=== PATIENT | female | born 1950 | race Caucasian/White ===

== ENCOUNTER 2020-10-03 19:15 | Emergency (ER) | payer MEDICARE, SELFPAY ==
--- NOTE | 2020-10-03 19:20 | ED.URI ---
HPI - URI/Sore Throat General Chief Complaint: Upper Respiratory Infection Stated Complaint: Sore Throat Time Seen by Provider: 10/03/20 19:20 Source: patient and RN notes reviewed History of Present Illness HPI Narrative: Patient is a 70-year-old female who presents the urgent care with complaints of a red throat on the left side. Patient states that she also saw some pus on the left tonsil . States that she called her doctor for a sore throat approximately a week and a half ago and was on amoxicillin for 10 days. Patient states that the throat is not sore anymore she just notices some redness. Patient has been gargling with salt water but was nervous she may have an infection . Patient denies of any fever, nausea, vomiting, headache. States that she does have a mild intermittent cough due to her chronic asthma but has not had any issues with her asthma recently. No other acute complaints. No acute distress noted. Patient aware of the plan of care. Some parts of this dictation were generated by voice recognition software and may contain typographical and/or grammatical inaccuracies. Related Data Home Medications Medication Instructions Recorded Confirmed albuterol sulfate [Ventolin HFA] INHALATION 10/03/20 alprazolam 10/03/20 amlodipine 10/03/20 atorvastatin 10/03/20 nabumetone mg 10/03/20 naproxen 10/03/20 tizanidine mg 10/03/20 triamcinolone acetonide applic TOPICAL 10/03/20 Allergies Allergy/AdvReac Type Severity Reaction Status Date / Time No Known Allergies Allergy Verified 10/03/20 19:23 Review of Systems Review of Systems: Narrative: CONSTITUTIONAL: Denies fever, chills, or sweats. EYES: Denies visual changes, redness, or discharge. ENT: Reports of a red throat to the left side and pus pockets on the left CARDIOVASCULAR: Denies chest pain, palpitations, or edema. RESPIRATORY: Reports of a chronic intermittent cough due to asthma GASTROINTESTINAL: Denies abdominal pain, nausea, vomiting, or diarrhea. GENITOURINARY: Denies dysuria or hematuria. SKIN: Denies rash or itching. MUSCULOSKELETAL: Denies back pain, joint pain, or myalgia. NEUROLOGIC: Denies headache, numbness, or weakness. All other systems reviewed are negative, except as documented in HPI. PMFSH Comments At the time of my signature, I reviewed and agree with the nursing past medical, surgical, social, and family history. There is no relevant family history pertinent to the patient complaint. Exam Narrative: Exam Narrative: GENERAL: This is a well-nourished, well-developed patient, in no apparent distress. HEAD: normocephalic, atraumatic. EYES: PERRL. Sclera clear/white. Vision is grossly intact. EARS: External ears normal, auditory canals clear and without drainage, TMs normal without perforation. Hearing grossly intact. NOSE: External nose normal with no obvious nasal discharge, nares without redness, no rhinorrhea. THROAT: Mucous membranes moist, very mild erythema noted posterior oropharynx without exudate or ulceration. No tonsillar edema noted. NECK: Neck supple, non-tender without lymphadenopathy CARDIOVASCULAR: Regular rate and rhythm without murmurs, gallops, or rubs. RESPIRATORY: Mild expiratory wheeze to upper lung griffin SKIN: warm, intact with no suspicious lesions or rash, good texture and turgor. NEURO: awake, alert, and oriented to person, place and time. There were no obvious focal neurologic abnormalities. EXTREMITIES: No clubbing, cyanosis, or edema. Course Vital Signs Vital signs: Vital Signs Temperature 98.4 F 10/03/20 19:25 Pulse Rate 101 H 10/03/20 19:25 Respiratory Rate 16 10/03/20 19:25 Blood Pressure 180/75 H 10/03/20 19:25 Pulse Oximetry 94 10/03/20 19:25 Temperature 98.4 F 10/03/20 19:25 Pulse Rate 101 H 10/03/20 19:25 Respiratory Rate 16 10/03/20 19:25 Blood Pressure 180/75 H 10/03/20 19:25 Pulse Oximetry 94 10/03/20 19:25 Reviewed?patient is informed that the
[2020-10-03 19:25] VITALS: BP 180/75; PULSE 101; RESP 16; TEMP 36.9; O2SAT 94
[2020-10-03 19:45] VITALS: BP 160/80
== END 2020-10-03 19:45 | disposition home or self-care (01) ==
PROVIDERS: Emergency Provider Nurse Practitioner Family; PCP Family Medicine
DX: J02.0 Streptococcal pharyngitis (principal); I10 Essential (primary) hypertension; J44.9 Chronic obstructive pulmonary disease, unspecified; M19.90 Unspecified osteoarthritis, unspecified site; H26.9 Unspecified cataract
CPT/HCPCS: 87880; 99213; G0463

== ENCOUNTER 2020-10-23 10:02 | Emergency (ER) | payer MEDICARE, SELFPAY ==
[2020-10-23 10:08] VITALS: BP 141/65; PULSE 98; RESP 20; TEMP 36.7; O2SAT 95
--- NOTE | 2020-10-23 10:30 | ED.LOWEXIN ---
HPI - Extremity Injury (Lower) General Chief Complaint: Extremity Injury, Lower Stated Complaint: left ankle pain Time Seen by Provider: 10/23/20 10:32 Source: patient and RN notes reviewed Mode of arrival: ambulatory Limitations: no limitations History of Present Illness HPI Narrative: 70-year-old female presents with concern for left ankle swelling, redness, warmth without injury. Reports she noticed the symptoms last night that worsened this morning. She reports worsening pain with weightbearing, aching at rest. She denies any open skin, abrasions, lacerations, bug bites. Denies itching. Reports a history of arthritis in the foot, however denies any previous history of ankle problems. She denies body aches, chills, fever, nausea. MD complaint: other (Left ankle swelling) Related Data Home Medications Medication Instructions Recorded Confirmed albuterol sulfate [Ventolin HFA] 2 puff INHALATION Q4H PRN 10/03/20 10/23/20 alprazolam 0.5 mg PO HS 10/03/20 10/23/20 amlodipine 10 mg PO DAILY 10/03/20 10/23/20 nabumetone 750 mg PO BID 10/03/20 10/23/20 naproxen 375 mg PO BID 10/03/20 10/23/20 tizanidine 2 mg PO Q6H PRN 10/03/20 10/23/20 Allergies Allergy/AdvReac Type Severity Reaction Status Date / Time Flu shot Allergy Unknown Uncoded 10/23/20 10:17 pneumonia shot AdvReac Unknown Uncoded 10/23/20 10:17 Review of Systems Review of Systems: Narrative: CONSTITUTIONAL: Denies malaise, chills, sweats, or fever. CARDIOVASCULAR: Denies chest pain, palpitations, or edema. RESPIRATORY: Denies cough or dyspnea. GASTROINTESTINAL: Deniesnausea, vomiting SKIN: Denies rash or itching, bruising, lacerations, abrasions to the ankle. MUSCULOSKELETAL: Denies myalgia. Reports left ankle redness, warmth, swelling without injury NEUROLOGIC: Denies numbness, weakness, or headache. All systems reviewed & are unremarkable except as noted in HPI and below PMFSH Social History Social History Gender identity (if verbalized by the patient): Female Comments At time of signature, agree with nursing past medical, surgical, social and family history. There is no relevant family history pertinent to the presenting complaint Exam Narrative: Exam Narrative: GENERAL: Well-appearing, well-nourished, and in no acute distress. HEAD: Normocephalic, atraumatic. EYES: PERRLA, conjunctivae clear NECK: Supple. CHEST: Speaks in full sentences. No respiratory distress. HEART: Regular rate and rhythm. Normal and equal peripheral pulses. EXTREMITIES: Left ankle, foot have normal strength and sensation, normal range of motion. No ecchymosis. 5/5 strength with ankle and digit flexion and extension. Normal sensation with sensitivity to light touch and pain. No point tenderness. No open wounds, no skin tenting, no devitalized tissue or atrophy, no trophic changes, no obvious deformity, alignment normal, nearby joints and structures intact. Distal pulses palpable and equal bilaterally, skin warm, dry, pink. Capillary refill less than 3 seconds. SKIN: Warm, dry, no rash. Left ankle circumferential erythema, edema, warmth, tenderness NEURO: Alert and oriented x3. PSYCH: Normal mood and affect Course Course Emergency Course: Patient is aware of diagnosis, understands and agrees to treatment plan. Anticipatory guidance given. Patient agrees to follow-up as directed and is aware of reasons to seek care at the emergency department. Portions of this record may have been created with voice recognition software Vital Signs Vital signs: Vital Signs Temperature 98.0 F 10/23/20 10:08 Pulse Rate 98 10/23/20 10:08 Respiratory Rate 20 10/23/20 10:08 Blood Pressure 141/65 H 10/23/20 10:08 Pulse Oximetry 95 10/23/20 10:08 Temperature 98.0 F 10/23/20 10:08 Pulse Rate 98 10/23/20 10:08 Respiratory Rate 20 10/23/20 10:08 Blood Pressure 141/65 H 10/23/20 10:08 Pulse Oximetry 95 10/23/20 10:08 Reviewed. MDM - Extremity Injury (Lower)
== END 2020-10-23 10:48 | disposition home or self-care (01) ==
PROVIDERS: Emergency Provider Nurse Practitioner; PCP Family Medicine
DX: L03.116 Cellulitis of left lower limb (principal); I10 Essential (primary) hypertension; J45.909 Unspecified asthma, uncomplicated; J44.9 Chronic obstructive pulmonary disease, unspecified; M19.90 Unspecified osteoarthritis, unspecified site; F41.9 Anxiety disorder, unspecified; H26.9 Unspecified cataract
CPT/HCPCS: 99213; G0463

== ENCOUNTER 2020-12-19 17:01 | Emergency (ER) | payer MEDICARE, SELFPAY ==
[2020-12-19 17:10] VITALS: BP 137/94; PULSE 94; RESP 18; TEMP 37.2; O2SAT 95
--- NOTE | 2020-12-19 17:34 | ED.URI ---
HPI - URI/Sore Throat General Chief Complaint: Upper Respiratory Infection Stated Complaint: sore throat Time Seen by Provider: 12/19/20 17:30 Source: patient Mode of arrival: ambulatory Limitations: no limitations History of Present Illness HPI Narrative: Eleanor Mayes is a 70-year-old female with HTN and anxiety who comes to [facility] with a sore throat for a few days who came to the side for strep testing. She will not consent to Covid test and has not been vaccinated Related Data Home Medications Medication Instructions Recorded Confirmed albuterol sulfate [Ventolin HFA] 2 puff INHALATION Q4H PRN 10/03/20 12/19/20 alprazolam 0.5 mg PO HS 10/03/20 12/19/20 amlodipine 10 mg PO DAILY 10/03/20 12/19/20 Allergies Allergy/AdvReac Type Severity Reaction Status Date / Time Flu shot Allergy Rash Uncoded 12/19/20 17:27 pneumonia shot AdvReac Rash Uncoded 12/19/20 17:27 Review of Systems Review of Systems: CONSTITUTIONAL: Denies fever, chills, sweats. EYES: Denies visual changes, redness, discharge. ENT: Denies rhinorrhea, congestion, has sore throat, otalgia. CARDIOVASCULAR: Denies chest pain, palpitations, edema. RESPIRATORY: Denies dyspnea, wheezing, cough GASTROINTESTINAL: Denies abdominal pain, nausea, vomiting, diarrhea. GENITOURINARY: Denies dysuria, hematuria, abnormal discharge SKIN: Denies rash or itching. NEUROLOGIC: Denies numbness, or focal weakness. PSYCHIATRIC: Denies anxiety or depression. FORMERLY [facility], 1928–1983 Past Medical History Medical History Anxiety HTN (hypertension) Family History Family History Other Hypertension Social History Social History (Updated 12/19/20 @ 17:47 by Colleen Jasso CNP) Smoking packs per day: 0.4 Smoking cigarettes per day: 8.0 Smoking status: Current every day smoker Tobacco type: cigarettes Alcohol intake: current Gender identity (if verbalized by the patient): Female Comments At time of signature, I agree with nursing past medical, surgical, social and family history. There is no relevant family history pertinent to the presenting complaint. Exam Narrative: GENERAL: This is a well-nourished, well-developed patient, in mild distress. HEAD: normocephalic, atraumatic. EYES: Sclera clear/white. Vision is grossly intact. EARS: External ears normal, auditory canals erythema and without drainage, TMs bulging. Hearing grossly intact. NOSE: External nose normal without nasal discharge, nares without redness, no rhinorrhea. THROAT: Mucous membranes moist, posterior pharynx mild erythema NECK: Neck supple, non-tender CARDIOVASCULAR: Regular rate and rhythm without murmurs, gallops, or rubs. RESPIRATORY: Clear to auscultation. Breath sounds equal bilaterally. No wheezes, rales, or rhonchi. GASTROINTESTINAL: Abdomen soft, non-tender, SKIN: warm, intact with no suspicious lesions or rash, good texture and turgor. NEURO: awake, alert, and oriented to person, place and time. There were no obvious focal neurologic abnormalities. Steady gait EXTREMITIES: Normal range of motion. BACK: Nontender without deformity Course Course Emergency Course: Patient came to [facility] with sore throat for a number of days no fever states it is somewhat difficult to swallow denies any pain in ears, she feels like she has a strep throat; states ears are itchy Strep test negative To complaining of sore throat and started on cepacol, zyrtec, and Medrol Dosepak-patient is aware of the results of the test Vital Signs Vital signs: Vital Signs Temperature 99 F 12/19/20 17:10 Pulse Rate 94 12/19/20 17:10 Respiratory Rate 18 12/19/20 17:10 Blood Pressure 137/94 H 12/19/20 17:10 Pulse Oximetry 95 12/19/20 17:10 Temperature 99 F 12/19/20 17:10 Pulse Rate 94 12/19/20 17:10 Respiratory Rate 18 12/19/20 17:10 Blood Pressure 137/94 H 12/19/20 17
== END 2020-12-19 18:08 | disposition home or self-care (01) ==
PROVIDERS: Emergency Provider Nurse Practitioner; PCP Family Medicine
DX: J02.9 Acute pharyngitis, unspecified (principal); F41.9 Anxiety disorder, unspecified; I10 Essential (primary) hypertension; F17.210 Nicotine dependence, cigarettes, uncomplicated
CPT/HCPCS: 87081; 87880; 99213; G0463

== ENCOUNTER 2021-09-18 13:07 | Emergency (ER) | payer MEDICARE, SELFPAY ==
[2021-09-18 13:19] VITALS: BP 163/57; PULSE 107; RESP 16; TEMP 37; O2SAT 93
--- NOTE | 2021-09-18 13:35 | ED.SKABFB ---
HPI - Skin/Abscess/Foreign Bdy General Chief complaint: Ear Stated complaint: Right Ear Injury Time Seen by Provider: 09/18/21 13:36 Source: patient and RN notes reviewed Mode of arrival: ambulatory Limitations: no limitations History of Present Illness HPI narrative: 71-year-old female presents the concern for injury to her ear. Reports just prior to arrival she was at the gas station, getting back into her car, she reports as she was running around in her car she hit the back of her ear on her car door. She reports noticing blood. She reports the area directly behind her ear is a little bit sore. She denies headache, vomiting, loss of consciousness, dizziness. MD complaint: laceration Related Data Home Medications Medication Instructions Recorded Confirmed albuterol sulfate [Ventolin HFA] 2 puff INHALATION Q4H PRN 10/03/20 09/18/21 alprazolam 0.5 mg PO HS 10/03/20 09/18/21 amlodipine 10 mg PO DAILY 10/03/20 09/18/21 alendronate 40 mg PO WEEKLY 09/18/21 09/18/21 nabumetone 750 mg PO PRN 09/18/21 09/18/21 tizanidine 2 mg PO PRN 09/18/21 09/18/21 Allergies Allergy/AdvReac Type Severity Reaction Status Date / Time Flu shot Allergy Rash Uncoded 09/18/21 13:31 pneumonia shot AdvReac Rash Uncoded 09/18/21 13:31 Review of Systems Review of Systems: CONSTITUTIONAL: Denies malaise, chills, sweats, or fever. SKIN: Reports laceration behind the right ear MUSCULOSKELETAL: Denies muscle skeletal pain NEUROLOGIC: Denies numbness, weakness, headache, amnesia All systems reviewed & are unremarkable except as noted in HPI and below PMFSH Past Medical History Medical History Anxiety HTN (hypertension) Family History Family History Other Hypertension Social History Social History (Updated 12/19/20 @ 17:47 by Colleen Jasso CNP) Smoking packs per day: 0.4 Smoking cigarettes per day: 8.0 Smoking status: Current every day smoker Tobacco type: cigarettes Alcohol intake: current Gender identity (if verbalized by the patient): Female Comments At time of signature, agree with nursing past medical, surgical, social and family history. There is no relevant family history pertinent to the presenting complaint Exam Narrative: GENERAL: Well-appearing, well-nourished, and in no acute distress. HEAD: Normocephalic, atraumatic. EYES: PERRLA, sclera clear, and EOMI. No nystagmus. ENT: Mucous membranes moist. NECK: Supple. CHEST: No respiratory distress. Speaks in full sentences. HEART: Regular rate and rhythm. No murmur heard. Normal peripheral pulses. SKIN: Warm, dry. 2 cm laceration noted on the back of the right ear with no current bleeding, well approximated, not through and through NEURO: Alert and oriented x3. No focal deficits. PSYCH: Normal mood and affect Course Course Emergency Course: CCHR score: Signs of open or depressed skull fracture: No Ambrosio sign/raccoon eyes: No 2 or more episodes of vomiting: No Age 65 years +: Yes Amnesia for events occurring 30 minutes prior to trauma: No Dangerous mechanism of injury: No Exam findings show no acute concerns; patient is alert and oriented with normal neurological exam. Discussed CCH R score and patient's age taking her slightly higher risk for head injury. Offered transfer to emergency department for CT scan, patient chooses to be discharged, she understands reasons to seek care in the emergency department if symptoms change. Patient is appropriate for outpatient treatment and follow-up. Patient is aware of diagnosis, understands and agrees to treatment plan. Anticipatory guidance given. Patient agrees to follow-up as directed and is aware of reasons to seek care at the emergency department. Portions of this record may have been created with voice recognition software Level of Care: Express Care Visit Vital Signs Vital signs: Vital Signs Te
== END 2021-09-18 13:53 | disposition home or self-care (01) ==
PROVIDERS: Emergency Provider Nurse Practitioner; PCP Family Medicine
DX: S01.311A Laceration without foreign body of right ear, initial encounter (principal); W22.8XXA Striking against or struck by other objects, initial encounter; F41.9 Anxiety disorder, unspecified; I10 Essential (primary) hypertension
CPT/HCPCS: 12011; 99212; G0463

== ENCOUNTER 2022-07-24 11:19 | Emergency (ER) | payer OTHER, SELFPAY ==
--- NOTE | ~2022-07-24 | XR_ITS ---
Left Knee Technique: AP, lateral, and oblique views were obtained. Clinical History: Pain Findings: No fracture or dislocation is seen. Osseous alignment is anatomic. Joint spaces are preserv ed without degenerative or erosive change. Chondrocalcinosis of the menisci noted. No joint effusion is seen. Impression: Chondrocalcinosis of the menisci. Reviewed, dictated and finalized at location . Impression: Chondrocalcinosis of the menisci.
[2022-07-24 11:31] VITALS: BP 153/66; PULSE 96; RESP 16; TEMP 36.4; O2SAT 93
--- NOTE | 2022-07-24 12:06 | ED.EXTPRO ---
HPI - Extremity Problem General Chief complaint: Extremity Problem,Nontraumatic Stated complaint: Left Knee Pain/Swelling Time Seen by Provider: 07/24/22 12:00 Source: patient, RN notes reviewed and old records reviewed Mode of arrival: ambulatory Limitations: no limitations History of Present Illness HPI Narrative: 72-year-old female who presents to [facility] with complaints of left knee pain for the past 4 days. Patient reports that she has restless legs and she stretched her left knee and leg out in bed because of cramping and has had pain to medial aspect of her left knee since. Patient reports that her pain is aggravated by bending and ambulation, has some limping gait noted. Patient reports that she has been taking her arthritis medication for her discomfort and also some Tylenol. Patient reports some head congestion this morning also, denies any fever or acute cough. MD Complaint: other (Knee pain left) Onset (ago): day(s) (4) Severity scale (1-10): 7 Quality: aching Related Data Home Medications Medication Instructions Recorded Confirmed alprazolam 0.5 mg tablet 0.5 mg PO DAILY 07/24/22 07/24/22 amlodipine 10 mg tablet 10 mg PO DAILY 07/24/22 07/24/22 atorvastatin 10 mg tablet 10 mg PO DAILY 07/24/22 07/24/22 fluticasone furoate 200 See Rx Instructions .Route .COMPLEX 07/24/22 07/24/22 mcg-vilanterol 25 mcg/dose inhalation powder (Breo Ellipta) naproxen 375 mg tablet 375 mg PO BID PRN Pain 07/24/22 07/24/22 nystatin 100,000 unit/gram topical See Rx Instructions .Route .COMPLEX 07/24/22 07/24/22 cream tizanidine 2 mg capsule 2 mg PO TID PRN pain 07/24/22 07/24/22 Allergies Allergy/AdvReac Type Severity Reaction Status Date / Time Flu shot Allergy Rash Uncoded 07/24/22 11:56 pneumonia shot AdvReac Rash Uncoded 07/24/22 11:56 Review of Systems Review of Systems: CONSTITUTIONAL: Denies fever, chills, or sweats. EYES: Denies visual changes, redness, or discharge. ENT: reports rhinorrhea, congestion,no sore throat, or otalgia. CARDIOVASCULAR: Denies chest pain, palpitations, or edema. RESPIRATORY: Denies cough or dyspnea. GASTROINTESTINAL: Denies abdominal pain, nausea, vomiting, or diarrhea. GENITOURINARY: Denies dysuria or hematuria. SKIN: Denies rash or itching. MUSCULOSKELETAL: Denies back pain, positive for left knee joint pain, or myalgia. NEUROLOGIC: Denies headache, numbness, or weakness. PSYCHIATRIC: Reports anxiety or depression. All systems reviewed & are unremarkable except as noted in HPI and below PMFSH Past Medical History Medical History Anxiety Arthritis COPD (chronic obstructive pulmonary disease) HTN (hypertension) Restless leg syndrome Serum cholesterol elevated Surgical History Surgical History H/O section Family History Family History Other Hypertension Social History Social History Smoking packs per day: 0.4 Smoking cigarettes per day: 8.0 Smoking status: Current every day smoker Tobacco type: cigarettes Alcohol intake: current Substance use type: does not use Occupation/Education: retired Gender identity (if verbalized by the patient): Female Comments At time of signature, agree with nursing past medical, surgical, social and family history. There is no relevant family history pertinent to the presenting complaint Exam Narrative: GENERAL: Well-appearing, well-nourished, and in no acute distress. HEAD: Normocephalic, atraumatic. EYES: PERRLA and EOMI. ENT: Nares clear, no rhinorrhea or epistaxis. Mucous membranes moist.TM's normal with good light reflex, throat pink with no swelling NECK: Supple. no lymphadenopathy CHEST: Clear to auscultation. No respiratory distress.SAO2 93% on room air HEART: Regular rate and rhythm.
--- NOTE | 2022-07-24 12:37 | ED.EXTPRO ---
HPI - Extremity Problem General Chief complaint: Extremity Problem,Nontraumatic Stated complaint: Left Knee Pain/Swelling Time Seen by Provider: 07/24/22 12:00 Source: patient, RN notes reviewed and old records reviewed Mode of arrival: ambulatory Limitations: no limitations Related Data Home Medications Medication Instructions Recorded Confirmed alprazolam 0.5 mg tablet mg 07/24/22 amlodipine 10 mg tablet mg 07/24/22 atorvastatin 10 mg tablet mg 07/24/22 fluticasone furoate 200 inhalation 07/24/22 07/24/22 mcg-vilanterol 25 mcg/dose inhalation powder (Breo Ellipta) naproxen 375 mg tablet mg 07/24/22 nystatin 100,000 unit/gram topical topical 07/24/22 cream tizanidine 2 mg capsule 2 mg PO TID PRN pain 07/24/22 07/24/22 Allergies Allergy/AdvReac Type Severity Reaction Status Date / Time Flu shot Allergy Rash Uncoded 07/24/22 11:56 pneumonia shot AdvReac Rash Uncoded 07/24/22 11:56 PMFSH Past Medical History Medical History Anxiety HTN (hypertension) Family History Family History Other Hypertension Social History Social History (Updated 12/19/20 @ 17:47 by Colleen Jasso, RENETTA) Smoking packs per day: 0.4 Smoking cigarettes per day: 8.0 Smoking status: Current every day smoker Tobacco type: cigarettes Alcohol intake: current Gender identity (if verbalized by the patient): Female Course Vital Signs Vital signs: Vital Signs Temperature 36.4 C 07/24/22 11:31 Pulse Rate 96 07/24/22 11:31 Respiratory Rate 16 07/24/22 11:31 Blood Pressure 153/66 H 07/24/22 11:31 Pulse Oximetry 93 07/24/22 11:31 Oxygen Delivery Room Air 07/24/22 11:31 Temperature 36.4 C 07/24/22 11:31 Pulse Rate 96 07/24/22 11:31 Respiratory Rate 16 07/24/22 11:31 Blood Pressure 153/66 H 07/24/22 11:31 Pulse Oximetry 93 07/24/22 11:31 Oxygen Delivery Room Air 07/24/22 11:31 Discharge Plan Discharge Clinical Impression: Knee pain, left Patient Disposition: Home, Self-Care Condition: Stable Instructions: Antibiotic Form, Knee Pain (ED) Additional Instructions: Elastic wrap or orthopedic splint such as neoprene as directed for comfort for the next 5-7 days Tylenol for lesser pain Ibuprofen regularly for the next 2-3 days for the inflammation Voltaren ointment as prescribed Follow-up with orthopedic surgeon if continued problems Dr. Schwab honing machine operator today [phone] Follow-up with PCP if further problems or concerns Ice to the area 20-30 minutes 4-6 times a day Elevate above heart If your symptoms persist, change or worsen significantly before you can contact your personal physician then please, without delay, go to the emergency department for further evaluation. Follow-up with PCP in 7-10 days or sooner if needed Follow up with PCP soon in regards to your blood pressure which is elevated above threshold for referral. Blood pressure above 120/80 may indicate pre-hypertension. Blood pressure 153/66 Prescriptions: No Action naproxen 375 mg tablet atorvastatin 10 mg tablet alprazolam 0.5 mg tablet amlodipine 10 mg tablet nystatin 100,000 unit/gram cream TOPICAL albuterol sulfate [Ventolin HFA] 90 mcg/actuation HFA aerosol inhaler INHALATION fluticasone furoate-vilanterol [Breo Ellipta] 200-25 mcg/dose blister with device INHALATION tizanidine 2 mg Capsule 2 mg PO TID PRN (Reason: pain) nabumetone 750 mg Tablet 750 mg PO BID Follow-up/Referrals: Harms,Samuel Polanco M.D. [Primary Care Provider] -
== END 2022-07-24 12:45 | disposition home or self-care (01) ==
PROVIDERS: Emergency Provider Registered Nurse; PCP Family Medicine
DX: M25.562 Pain in left knee (principal); J44.9 Chronic obstructive pulmonary disease, unspecified; I10 Essential (primary) hypertension; F17.210 Nicotine dependence, cigarettes, uncomplicated; Z79.1 Long term (current) use of non-steroidal anti-inflammatories (NSAID)
CPT/HCPCS: 73564; 99213; G0463

== ENCOUNTER 2023-10-18 17:36 | Emergency (ER) | payer OTHER, SELFPAY ==
[2023-10-18 17:40] VITALS: BP 144/66; PULSE 91; RESP 20; TEMP 36.7; O2SAT 95
--- NOTE | 2023-10-18 18:08 | ED.SKABFB ---
HPI - Skin/Abscess/Foreign Bdy General Chief complaint: Skin/Abscess/Foreign Body Stated complaint: Rash arm and chest Time Seen by Provider: 10/18/23 18:00 Source: patient, RN notes reviewed and old records reviewed Mode of arrival: ambulatory Limitations: no limitations History of Present Illness HPI narrative: 73 year old female who presents to [facility] care with complaints of red raised rash area to the upper left arm for 4-5 days, reports that she has had this similar rash in the past and usually resolves with steroid. Patient also states rash between her breast with is red patchy minimal raised to flat which is itchy, states first occurrence of this rash. Patient reports that she has been applying hydrocortisone cream, antibacterial ointment and cool compresses to rashes without resolution. MD complaint: rash Onset (ago): day(s) (-5) Severity: moderate Quality: pruritic Treatments prior to arrival: other (hydrocortisone, antibiotic ointment, cool compresses) Related Data Home Medications Medication Instructions Recorded Confirmed alprazolam 0.5 mg tablet 0.5 mg PO DAILY 07/24/22 10/18/23 amlodipine 10 mg tablet 10 mg PO DAILY 07/24/22 10/18/23 atorvastatin 10 mg tablet 10 mg PO DAILY 07/24/22 10/18/23 fluticasone furoate 200 See Rx Instructions .Route .COMPLEX 07/24/22 10/18/23 mcg-vilanterol 25 mcg/dose inhalation powder (Breo Ellipta) naproxen 375 mg tablet 375 mg PO BID PRN Pain 07/24/22 10/18/23 tizanidine 2 mg capsule 2 mg PO TID PRN pain 07/24/22 10/18/23 ezetimibe 10 mg tablet 10 mg PO DAILY 10/18/23 10/18/23 Allergies Allergy/AdvReac Type Severity Reaction Status Date / Time Flu shot Allergy Rash Uncoded 07/24/22 11:56 pneumonia shot AdvReac Rash Uncoded 07/24/22 11:56 Review of Systems Review of Systems: CONSTITUTIONAL: Denies fever, chills, or sweats. CARDIOVASCULAR: Denies chest pain, palpitations, or edema. RESPIRATORY: Denies cough or dyspnea. SKIN: Reports moderate red raised rash areas to left arm and patient has flat red itching area between her breast MUSCULOSKELETAL: Denies joint pain or myalgia. NEUROLOGIC: Denies headache, numbness, or weakness. All systems reviewed & are unremarkable except as noted in HPI and below PMFSH Past Medical History Medical History (Updated 10/20/23 @ 17:34 by Cordelia Hand NP) Anxiety Arthritis COPD (chronic obstructive pulmonary disease) HTN (hypertension) Restless leg syndrome Sciatica Serum cholesterol elevated Surgical History Surgical History H/O section Family History Family History Other Hypertension Social History Social History Smoking packs per day: 0.4 Smoking cigarettes per day: 8.0 Smoking status: Current every day smoker Tobacco type: cigarettes Alcohol intake: current Substance use type: does not use Occupation/Education: retired Gender identity (if verbalized by the patient): Female Comments At time of signature, agree with nursing past medical, surgical, social and family history. There is no relevant family history pertinent to the presenting complaint Exam Narrative: GENERAL: Well-appearing, well-nourished, and in no acute distress. HEAD: Normocephalic, atraumatic. EYES: PERRLA, conjunctivae clear, and EOMI. ENT: Mucous membranes moist. Oropharynx without edema, erythema or lesions. NECK: Supple. No lymphadenopathy CHEST: Clear to auscultation. No respiratory distress. HEART: Regular rate and rhythm. SKIN: Warm, dry.? Patches of erythema and edema moderate raised rash on left upper arm no itch or pain, minimal raised patchy area between breast which is itchy no drainage 4cm X X4cm area . NEURO:? Alert and oriented x3. PSYCH: Normal mood and affect Course Course Emergency Course: Ryan
[2023-10-18] MEDS: methylPREDNISolone ACETATE 80 MG/ML VIAL IM (18:25)
== END 2023-10-18 18:48 | disposition home or self-care (01) ==
PROVIDERS: Emergency Provider Registered Nurse; PCP Family Medicine
DX: L25.9 Unspecified contact dermatitis, unspecified cause (principal); B37.2 Candidiasis of skin and nail; F17.210 Nicotine dependence, cigarettes, uncomplicated; J44.9 Chronic obstructive pulmonary disease, unspecified; M19.90 Unspecified osteoarthritis, unspecified site; I10 Essential (primary) hypertension; G25.81 Restless legs syndrome; F41.9 Anxiety disorder, unspecified
CPT/HCPCS: 96372; 99213; G0463; J1010

== ENCOUNTER 2023-11-22 10:37 | Emergency (ER) | payer OTHER, SELFPAY ==
[2023-11-22 10:52] VITALS: BP 139/62; PULSE 102; RESP 16; TEMP 36.8; O2SAT 96
--- NOTE | 2023-11-22 11:49 | ED.GENADULT ---
HPI - General Adult General Chief complaint: Upper Respiratory Infection Stated complaint: Congestion/Cough Source: patient Mode of arrival: ambulatory Limitations: no limitations History of Present Illness HPI narrative: Pt presents for evaluation of sick symptoms for the past two days. Symptoms include sinus congestion, runny nose, occasional cough. No fever, chills, nausea, vomiting, sore throat. No recent sick contacts to her knowledge. She has asthma but her breathing pattern is unchanged. She is not taking any medication to assist with her symptoms. Related Data Home Medications Medication Instructions Recorded Confirmed alprazolam 0.5 mg tablet 0.5 mg PO DAILY 07/24/22 10/18/23 amlodipine 10 mg tablet 10 mg PO DAILY 07/24/22 10/18/23 fluticasone furoate 200 See Rx Instructions .Route .COMPLEX 07/24/22 10/18/23 mcg-vilanterol 25 mcg/dose inhalation powder (Breo Ellipta) naproxen 375 mg tablet 375 mg PO BID PRN Pain 07/24/22 10/18/23 tizanidine 2 mg capsule 2 mg PO TID PRN pain 07/24/22 10/18/23 albuterol sulfate 90 mcg/actuation inhalation 11/22/23 aerosol inhaler Allergies Allergy/AdvReac Type Severity Reaction Status Date / Time Flu shot Allergy Rash Uncoded 11/22/23 11:03 pneumonia shot AdvReac Rash Uncoded 11/22/23 11:03 Review of Systems Review of Systems: CONSTITUTIONAL: Denies fever, chills, or sweats. EYES: Denies visual changes, redness, or discharge. ENT: Reports sinus congestion and nasal drainage CARDIOVASCULAR: Denies chest pain, palpitations, or edema. RESPIRATORY: Reports cough. Denies shortness of breath. GASTROINTESTINAL: Denies abdominal pain, nausea, vomiting, or diarrhea. GENITOURINARY: Denies dysuria or hematuria. SKIN: Denies rash or itching. MUSCULOSKELETAL: Denies back pain, joint pain, or myalgia. NEUROLOGIC: Denies headache, numbness, dizziness, or weakness. PSYCHIATRIC: Denies anxiety or depression. [facility] Past Medical History Medical History Anxiety Arthritis COPD (chronic obstructive pulmonary disease) HTN (hypertension) Restless leg syndrome Sciatica Serum cholesterol elevated Surgical History Surgical History H/O section Family History Family History Other Hypertension Social History Social History Smoking packs per day: 0.4 Smoking cigarettes per day: 8.0 Smoking status: Former smoker Tobacco type: cigarettes Alcohol intake: current Substance use type: does not use Occupation/Education: retired Gender identity (if verbalized by the patient): Female Exam Narrative: GENERAL: Well-appearing, well-nourished, and in no acute distress. HEAD: Normocephalic, atraumatic. EYES: PERRLA and EOMI. ENT: Nares clear, no rhinorrhea or epistaxis. Mucous membranes moist. Oropharynx without tonsillar hypertrophy exudate or other lesions. Bilateral TMs p[place] nonbulging NECK: Supple. No adenopathy or masses. No carotid bruits or JVD CHEST: Clear to auscultation. No respiratory distress. No wheezes rales or rhonchi HEART: Regular rate and rhythm. No murmur heard. Normal peripheral pulses. ABDOMEN: Soft, nontender, nondistended, normal active bowel sounds. EXTREMITIES: Normal range of motion. No edema. SKIN: Warm, dry, no rash. NEURO: No focal deficits. Alert and oriented x3. PSYCH: Normal mood and affect. Course Course Emergency Course: This is a 73-year-old female who presented for evaluation of sick symptoms. She declined any testing today. Exam seems consistent with viral URI. Will discharge with Tessalon and flonase. Follow-up with primary provider. Go to the ER for worsening symptoms. Patient in agreement plan of care. Level of Care: Express Care Visit Vital Sign
== END 2023-11-22 12:02 | disposition home or self-care (01) ==
PROVIDERS: Emergency Provider Nurse Practitioner; PCP Family Medicine
DX: J06.9 Acute upper respiratory infection, unspecified (principal); F17.210 Nicotine dependence, cigarettes, uncomplicated; M19.90 Unspecified osteoarthritis, unspecified site; J44.9 Chronic obstructive pulmonary disease, unspecified; I10 Essential (primary) hypertension; G25.81 Restless legs syndrome; E78.00 Pure hypercholesterolemia, unspecified; F41.9 Anxiety disorder, unspecified
CPT/HCPCS: 99213; G0463

== ENCOUNTER 2024-01-09 11:18 | Emergency (ER) | payer OTHER, SELFPAY ==
[2024-01-09 11:27] VITALS: BP 121/46; PULSE 91; RESP 16; TEMP 36.7; O2SAT 95
--- NOTE | 2024-01-09 11:51 | ED.DENTAL ---
HPI - Dental/Oral General Chief complaint: Dental/Oral Stated complaint: left side jaw pain Time Seen by Provider: 01/09/24 11:51 Source: patient, RN notes reviewed and old records reviewed Mode of arrival: ambulatory Limitations: no limitations History of Present Illness HPI Narrative: 73-year-old female to Express Care with complaint of left jaw discomfort radiating to left ear for 3 days, worse with chewing. Patient denies any dental fractures, gingival swelling or drainage. patient denies fever, oral swelling, difficulty swallowing, cough, shortness of breath, injury to jaw. Patient states she has taken naproxen and muscle relaxer at home without relief. Patient reports is affecting her ability to sleep. Patient resting comfortably in exam room in no acute distress. Respirations even and nonlabored. Related Data Home Medications Medication Instructions Recorded Confirmed alprazolam 0.5 mg tablet 0.5 mg PO DAILY 07/24/22 10/18/23 amlodipine 10 mg tablet 10 mg PO DAILY 07/24/22 10/18/23 fluticasone furoate 200 See Rx Instructions .Route .COMPLEX 07/24/22 10/18/23 mcg-vilanterol 25 mcg/dose inhalation powder (Breo Ellipta) naproxen 375 mg tablet 375 mg PO BID PRN Pain 07/24/22 10/18/23 tizanidine 2 mg capsule 2 mg PO TID PRN pain 07/24/22 10/18/23 albuterol sulfate 90 mcg/actuation inhalation 11/22/23 aerosol inhaler Allergies Allergy/AdvReac Type Severity Reaction Status Date / Time Flu shot Allergy Rash Uncoded 11/22/23 11:03 pneumonia shot AdvReac Rash Uncoded 11/22/23 11:03 Review of Systems Review of Systems: All systems reviewed & are unremarkable except as noted in HPI and below Constitutional: Constitutional: Reports no additional constitutional complaints Eyes: Eyes: Reports no additional eye complaints ENT: Reports as per HPI, Reports otalgia ( left) and Reports other ( Left jaw pain) Cardiovascular: Cardiovascular: Reports no additional cardiovascular complaints, Denies chest pain and Denies dyspnea Respiratory: Respiratory: Reports no additional respiratory complaints, Denies cough and Denies dyspnea Musculoskeletal: Musculoskeletal: Reports no additional musculoskeletal complaints Neurologic: Reports system reviewed and no additional complaints, except as documented Psychiatric: Psychiatric: Reports no additional psychiatric complaints PMFSH Past Medical History Medical History Anxiety Arthritis COPD (chronic obstructive pulmonary disease) HTN (hypertension) Restless leg syndrome Sciatica Serum cholesterol elevated Surgical History Surgical History H/O section Family History Family History Other Hypertension Social History Social History Smoking packs per day: 0.4 Smoking cigarettes per day: 8.0 Smoking status: Former smoker Tobacco type: cigarettes Alcohol intake: current Substance use type: does not use Occupation/Education: retired Gender identity (if verbalized by the patient): Female Comments At the time of my signature, I reviewed and agree with the nursing past medical, surgical, social, and family history. There is no relevant family history pertinent to the patient complaint. Exam Const: General: cooperative, comfortable, no acute distress, alert and well nourished Nutritional Appearance: well nourished Orientation/consciousness: patient oriented x3 Limitations: no limitations HENMT: Head: normal to inspection Ears: external ears normal and TM abnormal bulging on the left and with fluid behind the TM on the left Face/Nose/Sinus: Normal external nose present, Normal nares present, normal facial exam, No erythema and No edema Face and sinus: normal facial exam, no erythema and no edema
== END 2024-01-09 12:14 | disposition home or self-care (01) ==
PROVIDERS: Emergency Provider Nurse Practitioner Family; PCP Family Medicine
DX: H66.92 Otitis media, unspecified, left ear (principal); R68.84 Jaw pain; Z87.891 Personal history of nicotine dependence; J44.9 Chronic obstructive pulmonary disease, unspecified; I10 Essential (primary) hypertension; G25.81 Restless legs syndrome; F41.9 Anxiety disorder, unspecified; M19.90 Unspecified osteoarthritis, unspecified site
CPT/HCPCS: 99213; G0463

== ENCOUNTER 2024-11-16 17:36 | Emergency (ER) | payer MEDICARE, SELFPAY ==
--- OUTSIDE RECORDS SUMMARY | 2024-11-16 17:38 | XMS_ITS | Clinical Summary ---
Author Organization [facility] Address [address] [place] [address] Phone Care Team Providers Care Pega Developer Name Role Phone Samuel Mccarty MD Primary Care Provider [phone] Allergies No known active allergies Medications lisinopril (PRINIVIL, ZESTRIL) 40 MG Tablet Take 20 mg by mouth 2 times daily. Active ALPRAZolam (XANAX) 0.5 MG Tablet Take 0.5 mg by mouth nightly as needed. Active NAPROXEN PO Take by mouth. Act kathy nabumetone (RELAFEN) 750 MG Tablet Take 750 mg by mouth daily. Active Albuterol Sulfate (VENTOLIN HFA IN) take by inhalation. Active triamcinolone (KENALOG) 0.1 % Cream Apply 2 times daily. Application Site: Back Active methylPREDNISol one (MEDROL) 4 MG Tablet Therapy PackIndications :Rash Use as per instructions on package. 21 Tab 7 Active Active Problems No known active problems Social History Tobacco Use Types Packs/Day Years Used Date Smoking Tobacco: Every Day Cigarettes Smokeless Tobacco: Never Tobacco Cessation:Ready to Q uit: No; Counseling Given: Yes Comments No Sex and Gender Information Value Date Recorded Sex Assigned at Not on file Legal Sex Female 12:30 AM CDT Gender Identity Not on file Sexual Orientation Not on file Last Filed Vital Signs Vital Sign Reading Time Taken Comments Blood Pressure 122/72 04/23/2017 12:56 PM FILLETER Pulse 96 04/23/2017 12:56 PM FILLETER Temperature 37.1 C (98.7 F) 04/23/2017 12:56 PM FILLETER Respiratory Rate 16 04/23/2017 12:56 PM FILLETER Oxygen Saturation 96% 04/23/2017 12:56 PM FILLETER Inhaled Oxygen Concentration - - Weight 77.1 kg (170 lb) 04/23/2017 12:56 PM FILLETER Height 165.1 cm (5' 5) 04/23/2017 12:56 PM FILLETER Body Mass Index 28.29 04/23/2017 12:56 PM FILLETER Plan of Treatment Health Maintenance Due Date Last Done Comments DEXA Bone Density 1950 Hepatitis C Virus (HCV) Screening 1950 TdaP Immunization 1950 Colonoscopy 1996 Colorectal Cancer Screening 1996 Cologuard 2001 Immunochemical Fecal Occult Blood 2001 Mammogram 2001 Pneumococcal Immunization (5 0+ years) (1 of 1 - PCV) 2001 Zoster Immunization (1 of 2) 2001 Influenza Immunization (#1) 2024 SARS-COV-2 Immunization ( - 2023- season) 2024 Respiratory Syncytial Virus (RSV) Immunization (Adult) (1 - 1-dose 75+ series) 2026 Hepatitis B Immunization Aged Out No longer eligible based on patient's age to complete this topic Meningococcal Immunization (ACWY) Aged Out No longer eligible based on patient's age to complete this topic Rotavirus Immunization Aged Out No lo nger eligible based on patient's age to complete this topic Insurance MEDICARE Member Subscriber Plan / Payer (Ef fective 2016-Present) Name:Eleanor Mayes Member ID:[id number] Relation to Subscriber:Self Name:Eleanor Mayes Subscriber ID:[id number] Payer ID:[id number] Group ID:Not on file Type:Not on file Address: [facility] [address] [facility] [place] [facility], [facility] [place] [address] [facility] [employer] [facility] [employer] emergency specialist Care Teams Pega Developer Relationship Specialty Start Date End Date Samuel [place] [address] PCP - General Internal Medicine 04/23/17
--- OUTSIDE RECORDS SUMMARY | 2024-11-16 17:38 | XMS_ITS | Encounter Summary ---
Author Organization [facility] Address [address] [place] [address] Care Team Providers Care Railroad Car Loader Name Role Phone Samuel Mccarty MD Primary Care Provider [phone] Reason for Visit * Reason Onset Date Comments Scheduling Appointments 12/05/2020 Confirmi ng bone density scan Encounter Details Date Type Department Care Team (Late st Contact Info) Description 12/05/2020 Telephone [facility] [address] [place] [id number] [address] Scheduling Appointments (Confirming bone density scan) Social History Tobacco Use Types Packs/Day Years Used Date Smoking Tobacco: Heavy Smoker Cigarettes Smokeless Tobacco: Never Comments:Smoking History Pac ks/day: 3 Packs Alcohol Use Standard Drinks/Week Comments No 0 (1 standard drink = 0.6 oz pur e alcohol) PHQ-2 Answer Date Recorded PHQ-2 Total Score (If total score is 3 or more points, staff should administer the PHQ-9) 0 10/10/2020 Comments Unknown Sex and Gender Information Value Date Recorded Sex Assigned at Not on file Legal Sex Female 9:37 AM HOT MAN Gender Identity Not on file Sexual Orientation Not on file documented as of this encounter Plan of Treatment Not on file documented as of this encounter Visit Diagnoses Not on filedocumented in this encounter Additional Health Concerns Infection Onset Date Last Indicated Resolved Time COVID: Suspected 07/05/2022 07/05/2022 07/05/2022 11:44 AM HOT MAN COVID: Suspected 04/17/2023 04/17/2023 04/17/2023 11:46 AM HOT MAN documented as of this encounter Care Teams Railroad Car Loader Relationship Specialty Start Date End Date Samuel Mccarty MD [address] [place] [address] PCP - General 08/01/16 documented as of this encounter
--- OUTSIDE RECORDS SUMMARY | 2024-11-16 17:38 | XMS_ITS | Referral Summary ---
Author Organization [facility] Address [address] [place] [address] Care Team Providers Care Specialty Cook Name Role Phone Samuel Mccarty MD Primary Care Provider [phone] Allergies Active Allergy Reactions Criticality Noted Date Comments Influenza Virus Vaccines Rash Medium 04/07/2022 Other Rash,Unknown Medium 10/23/2020 Pneumococcal Vaccine Swelling Medium 05/09/2019 Medications tiZANidine (ZANAFLEX) 2 mg tablet TAKE 1 TABLET BY MOUTH EVERY 6 HOURS NEEDED FOR MUSCLE SPASM 30 tablet 05/23/19 22 Active nabumetone (RELAFEN) 750 mg tablet Take 1 tablet (750 mg total) by mouth 2 (two) times a day 180 tablet 3 04/07/20 22 Active naproxen (NAPROSYN) 375 mg tablet TAKE 1 TABLET BY MOUTH TWICE DAILY WITH MEALS 60 tablet 02/19/20 23 Active Breo Ellipta 100-25 mcg/dose diskus inhaler Inhale 1 puff daily Rinse mouth with water after use. Do not swallow. 60 each 5 07/07/19 25 Active nystatin cream APPLY CREAM TOPICALLY TWICE DAILY 30 g 07/14/19 25 Active amLODIPine (NORVASC) 10 mg tabletIndicati ons:Hypertensi on, essential Take 1 tablet by mouth once daily 90 tablet 08/30/19 25 Active triamcinolone (KENALOG) 0.5 % cream Apply topically 2 (two) times a day 30 g 11 09/20/19 25 Active albuterol HFA (PROVENTIL HFA,VENTOLIN HFA,PROAIR HFA) 90 mcg/actuation inhalerIndicat ions:Simple chronic bronchitis (HCC) INHALE 2 PUFFS BY MOUTH EVERY 4 HOURS NEEDED FOR WHEEZING FOR SHORTNESS OF BREATH 54 g 10/28/19 25 Active ALPRAZolam (XANAX) 0.5 mg tabletIndicati ons:Anxiety TAKE 1 TABLET BY MOUTH NIGHTLY NEEDED FOR ANXIETY 30 tablet 11/04/19 25 Active albuterol HFA (ProAir HFA) 90 mcg/actuation inhalerIndicat ions:Simple chronic bronchitis (HCC) Inhale 2 puffs every 4 (four) hours as needed for wheezing or shortness of breath 3 each 4 02/26/20 24 025 Discontinued ALPRAZolam (XANAX) 0.5 mg tabletIndicati ons:Anxiety Take 1 tablet (0.5 mg total) by mouth nightly as needed for anxiety 30 tablet 10/08/19 25 025 Discontinued Active Problems Problem Noted Date Diagnosed Date Asymptomatic menopausal state 07/17/2024 Assessment & Plan (07/17/2024 4:41 PM CDT): Bone density screening. Reviewed calcium and vitamin D supplementation. Encounter for screening mamm ogram for malignant neoplasm of breast 07/17/2024 Assessment & Plan (07/17/2024 4:41 PM CDT): Breast cancer screening and will follow response. COPD (chronic obstructive pulmonary disease) Arthritis 06/29/2024 Acute non-recurrent maxillary sinusitis 03/11/20 24 Assessment & Plan (03/11/2024 10:31 AM TAILOR FITTER): Course of amoxicillin and will montio rersopnse. Push fludis, reatolive rest given duration of sypmtoms. BMI 31.0-31.9,adult 03/11/2024 Assessment & Plan (07/17/2024 4:40 PM CDT): Encourage 150min/week aerobic exercise. Healthy food choices. Assessment & Plan (03/11/2024 10:32 AM TAILOR FITTER): ENcourage 150min/week aerobic exericse. Healthy food choices. Obesity (BMI 30.0-34.9) 03/11/2024 Assessment & Plan (07/17/2024 4:40 PM CDT): As above. Assessment & Plan (03/11/2024 10:32 AM TAILOR FITTER): As above. Age-related osteoporosis wit hout current pathological fracture 12/23/2022 Assessment & Plan (12/23/2022 1:44 PM CDT): Reviewed 01/2021 bone density testing showing osteoporosis. Encouraged weight- bearing exercises, will check updated DEXA scan. Physical exam, annual 12/23/2022 Assessment & Plan (12/23/2022 1:43 PM CDT): Preventive exam; reviewed recommended preventive screenings and vaccinations. Encourage annual flu vaccine. -mammogram ordered today -bone density testing ordered today Mixed hyperlipidemia 12/23/2022 Assessment & Plan (12/23/2022 1:43 PM CDT): Patient not currently taking atorvastatin. Fasting labs ordered, will continue to monitor. Tachycardia 12/23/2022 Assessment & Plan (12/23/2022 1:58 PM CDT): EKG completed today in office, sinus tachycardia with heart rate 103. No prior EKG on file for comparison. Moderate persistent asthma without complication 12/23/2022 Assessment & Plan (07/17/2024 4:39 PM CDT): REviewed use of Breo and sparing use of albuterol and will follow response. Assessment & Plan (03/11/2024 10:31 AM TAILOR FITTER): Continues on breo and albuterol. WIll follow response. Reivewed pulmonary toilet and will montior ersponse. Assessment & Plan (12/23/2022 1:47 PM CDT): Patient continues Breo maintenance inhaler. Faint wheezing heard today on exam, patient reports that albuterol was not currently covered under insurance plan. Will recent albuterol/rescue inhaler to pharmacy to determine coverage. Otherwise she is feeling well, denies any fevers or difficulty breathing. Recommended patient use albuterol inhaler 1-2 puffs every 4-6 hours. Discussed avoiding unnecessary outdoor exposures with excessive heat and humidity coupled with poor air quality. Hypercalcemia 12/23/2022 Assessment & Plan (12/23/2022 1:57 PM CDT): Stable, will continue to monitor. Ordered repeat calcium and PTH Thyroid nodule 01/29/2022 Assessment & Plan (01/29/2022 1:43 PM CDT): Fine needle biopsy of left thyroid nodule 1.8 cm, call with results Laryngopharyngeal reflux (LPR) 01/14/2021 Assessment & Plan (07/17/2024 4:40 PM CDT): No increased reflux or increaed cough. Assessment & Plan (01/14/2021 2:16 PM CDT): Pepcid 40 mg at bedtime LPR discussed and Handout provided Contact dermatitis 10/08/2017 Assessment & Plan (10/08/2017 9:41 PM CDT): Complete the prednisone as directed You may use Benadryl or Zyrtec for itching You can use an OTC hydrocortisone cream to soothe your skin topically Keep your skin cool & wear loose clothing to avoid becoming hot, which could increase the itching. Try to figure out the trigger of rash Apply Lotrimin cream twice a day consistently Return in 3 weeks If no improvement Obesity (BMI 30-39.9) 10/08/2017 Assessment & Plan (10/08/2017 3:21 PM CDT): Obesity is unchanged. Discussed the patient's BMI. The BMI is above average; BMI management plan is completed. Diet interventions: low calorie (1000 kCal/d) deficit diet.Diet= low-carb Limit white bread, rice, pasta, potatoes, juice, energy drinks, coffee creamers with sugar, sugar sodas, candy, cake, cookies, ice cream. Be more careful with starchy vegetables like corn, carrots, and fruits. Stay away from processed foods, fast foods, fried foods. The cornerstone of this diet is lean grilled meats, green salads or cooked greens, fat-free milk, cottage cheese, nuts like cugnhec-[id number]-dpoprvr, protein bars with 10-15 g of protein and 20-30 g of carbohydrate. Choose whole grain breads and pastas, brown rice, sweet potatoes, read onions--these whole grains absorb more slowly thus blood sugar does not surge so high so quickly. Avoid drinking juice, eat a piece of fruit instead. Tobacco use 04/18/2016 Overview (08/07/2016): Tobacco use Assessment & Plan (07/17/2024 4:40 PM CDT): Has sig downtitrated. Enocurage complete cessation. R eviewed LDCT lung cancer screneing recommendations. Hypertension, essential 09/17/2013 Overview (08/07/2016): HYPERTENSION NOS Assessment & Plan (07/17/2024 4:39 PM CDT): Stable on amlodipien. No increased edeam. No side effects to medication. Assessment & Plan (12/23/2022 1:43 PM CDT): Blood pressure is well controlled, continue amlodipine 10 mg daily. Assessment & Plan (10/08/2017 9:39 PM CDT): Hypertension is unchanged. Pt. Due for labs from June Continue current treatment regimen. Continue Lisinopril Blood pressure will be reassessed at the next regular appointment.Lifestyle changes can help you control and prevent high blood pressure, even if you're taking blood pressure medication. Here's what you can do: Eat healthy foods. Eat a healthy diet. Try the Dietary Approaches to Stop Hypertension (DASH) diet, which emphasizes fruits, vegetables, whole grains, poultry, fish and low-fat dairy foods. Get plenty of potassium, which can help prevent and control high blood pressure. Eat less saturated fat and trans fat. Decrease the salt in your diet. A lower sodium level -- 1,500 milligrams (mg) a day -- is appropriate for people 51 years of age or older, and individuals of any age who are black or who have hypertension, diabetes or chronic kidney disease. Maintain a healthy weight. Keeping a healthy weight, or losing weight if you're overweight or obese, can help you control your high blood pressure and lower your risk of related health problems. If you're overweight, losing even 5 pounds (2.3 kilograms) can lower your blood pressure. Increase physical activity. Regular physical activity can help lower your blood pressure, manage stress, reduce your risk of several health problems and keep your weight under control. Limit alcohol. Even if you're healthy, alcohol can raise your blood pressure. If you choose to drink alcohol, do so in moderation. For healthy adults, that means up to one drink a day for women of all ages and men older than age 65, and up to two drinks a day for men age 65 and younger. One drink equals 12 ounces of beer, 5 ounces of wine or 1.5 ounces of 80-proof liquor. Don't smoke. Tobacco injures blood vessel moss and speeds up the process of hardening of the arteries. If you smoke, ask your doctor to help you quit. Manage stress. Reduce stress as much as possible. Practice healthy coping techniques, such as muscle relaxation, deep breathing or meditation. Getting regular physical activity and plenty of sleep can help, too. Notify the office for blood pressure greater than 130/80 Liver damage 09/17/2013 Overview (08/08/2016): Liver cell damage Resolved Problems Problem Noted Date Diagnosed Date Resolved Date Viral URI 06/29/2024 06/29/2024 Skin yeast infection 06/29/2024 025 Serum cholesterol elevated 06/29/2024 0 06/29/2024 Restless leg syndrome 06/29/20242024 Jaw pain 06/29/2024 06/29/2024 Acute left otitis media 06/29/202406/05 Immunizations Immunization Administration Dates Next Due Influenza, Unspecified 01/05/2024(Deferr ed: Patient Refused),06/29/2023(Deferred: Patient Refused),05/04/2023(Deferred: Patient Refused),01/02/2023(Deferred: Patient Refused),04/07/2022(Deferred: Patient Refused),02/01/2022(Deferred: Patient Refused),01/02/2022(Deferred: Patient Refused),05/04/2021(Deferred: Patient Refused),03/08/2021(Deferred: Patient Refused),02/01/2021(Deferred: Patient Refused),01/02/2021(Deferred: Patient Refused),05/04/2020(Deferred: Patient Refused),05/04/2020(Deferred: Patient Refused),04/11/2020(Deferred: Patient Refused),05/09/2019(Deferred: Patient Refused),05/27/2018(Deferred: Patient Refused),05/04/2018(Deferred: Patient Refused),02/02/2018(Deferred: Patient Refused) Pneumococcal Conjugate PCV 13 01/21/2018, 018 Pneumococcal Conjugate, Unspecified 01/2021(Deferred: Patient Refused),05/04/2019(Deferred: Patient Refused) Social History Tobacco Use Types Packs/Day Years Used Date Smoking Tobacco: Light Smoker Cigarettes Smokeless Tobacco: Never Tobacco Cessation:Ready to Q uit: Not Asked; Counseling Given: Not Answered Comments:Smoking History Packs/day: 3 Packs Alcohol Use Standard Drinks/Week Comments No 0 (1 standard drink = 0.6 oz pur e alcohol) PHQ-2 Answer Date Recorded PHQ-2 Total Score (If total score is 3 or more points, staff should administer the PHQ-9) 0 07/06/2024 Comments Unknown Sex and Gender Information Value Date Recorded Sex Assigned at Not on file Legal Sex Female 9:37 AM TAILOR FITTER Gender Identity Not on file Sexual Orientation Not on file Last Filed Vital Signs Vital Sign Reading Time Taken Comments Blood Pressure 128/68 07/06/2024 1:25 PM TAILOR FITTER Pulse 74 07/06/2024 1:25 PM TAILOR FITTER Temperature 36.6 C (97.8 F) 07/06/2024 1:25 PM TAILOR FITTER Respiratory Rate 18 07/06/2024 1:25 PM TAILOR FITTER Oxygen Saturation 94% 07/06/2024 1:25 PM TAILOR FITTER room air Inhaled Oxygen Concentration - - Weight 72.1 kg (159 lb) 07/06/2024 1:25 PM TAILOR FITTER Height 152.4 cm (5') 07/06/2024 1:25 PM TAILOR FITTER Body Mass Index 31.05 07/06/2024 1:25 PM TAILOR FITTER Plan of Treatment Not on file Procedures Procedure Name Priority Date/Time Associated Diagnosis Comments DEXA AXIAL SKELETON BONE DENSITY 1 OR MORE SITES Schedule Routine, Read Routine (OP Routine) 12/06/2020 10:52 AM CDT Asymptomatic menopausal state COLONOSCOPY IMAGES 12/03/2015 HM MAMMOGRAPHY Routine 10/23/2011 from Last 3 Months or Most Recently Relevant to Health Maintenance Results * Dexa Axial Skeleton Bone Density 1 Or 2 Site (12/06/2020 10:52 AM CDT) Anatomical Region Laterality Modality Body N/A Other 12/06/2020 12:2 1 PM CDT Narrative 12/06/2020 12:26 PM CDT EXAM DESCRIPTION: DEXA AXIAL SKELETON BONE DENSITY 1 OR MORE SITES REASON FOR STUDY: 70 y/o year old F with given history of screening. 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 FINDINGS: AP LUMBAR SPINE L1-L4: Total BMD is 0.974 g/cm2 T-score is -0.7 LEFT HIP: Total BMD is 0.784 g/cm2 T-score is -1.3 Femoral neck BMD is 0.500 g/cm2 T-score is -3.1 IMPRESSION: Osteoporosis. FRAX not reported due to T-score of the femoral neck being at or below -2.5 REFERENCE: Bone mineral density: Normal (T-score above or = -1.0) Low bone mass (T-score between -1.0 and -2.5) replaces the previously used term osteopenia Osteoporosis (T-score = or below -2.5) Medical evaluation for secondary causes of low bone mineral density may be appropriate. FRAX is a World Health Organization validated fracture risk assessment tool that calculates a person's 10 year probability of a major osteoporosis related fracture and hip fracture. According to the National Osteoporosis Foundation guidelines, postmenopausal women and men age 50 or older with low bone mass and a 10 year probability of a major osteoporosis related fracture = or greater than 20% or a 10 year probability of a hip fracture = or greater than 3% should be considered for treatment. For further information, including treatment recommendations, please refer to the 2013 ISCD Official Positions (http://www.iscd.org) and the NOF's Clinician's Guide to Prevention and Treatment of Osteoporosis (http://www.nof.org/professionals/clinical-guidelines) THIS IS AN ELECTRONICALLY VERIFIED FINAL REPORT 12/06/2020 12:26 PM - Electronically signed by Radha Tim M.D. TB: TB Report ID: [id number] [facility] Procedure Note Radha Tim MD - 12/06/2020 EXAM DESCRIPTION: DEXA AXIAL SKELETON BONE DENSITY 1 OR MORE SITES REASON FOR STUDY: 70 y/o year old F with given history ofscreening. 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 FINDINGS: AP LUMBAR SPINE L1-L4: Total BMD is 0.974 g/cm2 T-score is -0.7 LEFT HIP: Total BMD is 0.784 g/cm2 T-score is -1.3 Femoral neck BMD is 0.500 g/cm2 T-score is -3.1 IMPRESSION: Osteoporosis. FRAX not reported due to T-score of the femoral neck being at or below-2.5 REFERENCE: Bone mineral density: Normal (T-score above or = -1.0) Low bone mass (T-score between -1.0 and -2.5) replaces thepreviously used term osteopenia Osteoporosis (T-score = or below -2.5) Medical evaluation for secondary causes of low bone mineral density may be appropriate. FRAX is a World Health Organization validated fracture risk assessmenttool that calculates a person's 10 year probability of a major osteoporosisrelated fracture and hip fracture. According to the National OsteoporosisFoundation guidelines, postmenopausal women and men age 50 or older with low bonemass and a 10 year probability of a major osteoporosis related fracture = or greater than 20% or a 10 year probability of a hip fracture = or greaterthan 3% should be considered for treatment. For further information, including treatment recommendations, please referto the 2013 ISCD Official Positions (http://www.iscd.org) and the NOF's Clinician's Guide to Prevention and Treatment of Osteoporosis (http://www.nof.org/professionals/clinical-guidelines) THIS IS AN ELECTRONICALLY VERIFIED FINAL REPORT 12/06/2020 12:26 PM - Electronically signed by Radha Tim M.D. TB: TB Report ID: [id number] Reading Location: [facility] Samuel Mccarty MD IMG DXA PROCEDURES Final Result * COLONOSCOPY IMAGES (12/03/2015) Anatomical Region Laterality Modality Other Narrative 12/03/2015 Ordered by an unspecified provider. Historical Provider GI PROCEDURE ORDERABLES F inal Result * MAMMOGRAPHY (10/23/2011) Mammogram Normal SCRIBED BI-RADS 2 Historical Provider HEALTH MAINTENANCE Final Result from Last 3 Months or Most Recently Relevant to Health Maintenance Insurance [employer] MED[employer]ARE HMO [employer] MEDICARE HMO Care Teams Specialty Cook Relationship Specialty Start Date End Date Samuel Mccarty MD [address] [place] [address] PCP - General 08/01/16
--- OUTSIDE RECORDS SUMMARY | 2024-11-16 17:38 | XMS_ITS | Encounter Summary ---
Author Organization [facility] Address [address] [place] [address] Care Team Providers Care Flatwork Assembler Name Role Phone Samuel Mccarty MD Primary Care Provider [phone] Encounter Details Date Type Department Care Team (Late st Contact Info) Description 03/26/2021 Telephone [facility] [address] [place] [address] Tessa Bazzi RT Social History Tobacco Use Types Packs/Day Years Used Date Smoking Tobacco: Heavy Smoker Cigarettes Smokeless Tobacco: Never Comments:Smoking History Pac ks/day: 3 Packs Alcohol Use Standard Drinks/Week Comments No 0 (1 standard drink = 0.6 oz pur e alcohol) PHQ-2 Answer Date Recorded PHQ-2 Total Score (If total score is 3 or more points, staff should administer the PHQ-9) 0 03/08/2021 Comments Unknown Sex and Gender Information Value Date Recorded Sex Assigned at Not on file Legal Sex Female 9:37 AM BLACKJACK SUPERVISOR Gender Identity Not on file Sexual Orientation Not on file documented as of this encounter Plan of Treatment Not on file documented as of this encounter Visit Diagnoses Not on filedocumented in this encounter Additional Health Concerns Infection Onset Date Last Indicated Resolved Time COVID: Suspected 07/05/2022 07/05/2022 07/05/2022 11:44 AM BLACKJACK SUPERVISOR COVID: Suspected 04/17/2023 04/17/2023 04/17/2023 11:46 AM BLACKJACK SUPERVISOR documented as of this encounter Care Teams Flatwork Assembler Relationship Specialty Start Date End Date [place] [address] PCP - General 08/01/16 documented as of this encounter
--- OUTSIDE RECORDS SUMMARY | 2024-11-16 17:38 | XMS_ITS | Clinical Summary ---
Author Organization [facility] Address [address] [place] [address] Care Team Providers Care Lock Assembler Name Role Phone Samuel Mccarty MD Primary Care Provider [phone] Allergies Active Allergy Reactions Criticality Noted Date [...] 24 Assessment & Plan (03/11/2024 10:31 AM PALLIATIVE CARE NURSE): Course of amoxicillin and will montio rersopnse. Push fludis, reatolive rest given duration of sypmtoms. BMI 31.0-31.9,adult 03/11/2024 Assessment & Plan (07/17/2024 4:40 PM CDT): Encourage 150min/week aerobic exercise. Healthy food choices. Assessment & Plan (03/11/2024 10:32 AM PALLIATIVE CARE NURSE): ENcourage 150min/week aerobic exericse. Healthy food choices. Obesity (BMI 30.0-34.9) 03/11/2024 Assessment & Plan (07/17/2024 4:40 PM CDT): As above. Assessment & Plan (03/11/2024 10:32 AM PALLIATIVE CARE NURSE): As above. Age-related osteoporosis wit hout current [...] response. Assessment & Plan (03/11/2024 10:31 AM PALLIATIVE CARE NURSE): Continues on breo and albuterol. WIll follow [...] greens, fat-free milk, cottage cheese, nuts like [id number], protein bars with 10-15 g of protein [...] Conjugate, Unspecified 01/2021(Deferred: Patient Refused),05/04/2019(Deferred: Patient Refused) Surgical History Surgery Date Site/Laterality Comments CATARACT EXTRACTION Cataract extraction Medical History Medical History Date Comments Hx Other Medical liver cell beatriz dior; Comments: SHERI 05/18/2015 - Hypertension Hypertension Liver damage Obesity Serum cholesterol elevated 06/29/2024 Restless leg syndrome 06/29/2024 Skin yeast infection 06/29/2024 Viral URI 06/29/2024 Acute left otitis media 06/29/2024 Jaw pain 06/29/2024 Family History Medical History Relation Name Comments Hypertension Mother Hypertension; Relation Name Status Comments Father Mother Social History Tobacco Use Types Packs/Day Years [...] on file Legal Sex Female 9:37 AM PALLIATIVE CARE NURSE Gender Identity Not on file Sexual Orientation Not on file Obstetrics History Last Filed Vital Signs Vital Sign Reading Time Taken Comments Blood Pressure 128/68 07/06/2024 1:25 PM PALLIATIVE CARE NURSE Pulse 74 07/06/2024 1:25 PM PALLIATIVE CARE NURSE Temperature 36.6 C (97.8 F) 07/06/2024 1:25 PM PALLIATIVE CARE NURSE Respiratory Rate 18 07/06/2024 1:25 PM PALLIATIVE CARE NURSE Oxygen Saturation 94% 07/06/2024 1:25 PM PALLIATIVE CARE NURSE room air Inhaled Oxygen Concentration - - Weight 72.1 kg (159 lb) 07/06/2024 1:25 PM PALLIATIVE CARE NURSE Height 152.4 cm (5') 07/06/2024 1:25 PM PALLIATIVE CARE NURSE Body Mass Index 31.05 07/06/2024 1:25 PM PALLIATIVE CARE NURSE Plan of Treatment Health Maintenance Due Date Last Done Comments Hepatitis C Screening 1950 DTaP/Tdap/Td Vaccine (1 - Tdap) 1962 Hepatitis B Screening 1969 Zoster Vaccine (1 of 2) 2001 Breast Cancer Screening-Mammogram 10/22/2012 012 Osteoporosis Screening-Bone Density Scan 12/06/2022 12/06/2020 Well Visit 65+ 01/04/2025 01/05/2024, 12/03, 10/10/2020, Additional history exists Depression Screening 07/06/2025 07/06/2024, 03/04/2024, 01/05/2024, Additional history exists Fall Risk Assessment 07/06/2025 07/06/2024, 03/04/2024, 01/05/2024, Additional history exists Colon Cancer Screening-Colonoscopy 12/02/2025 12/03/2015, 12/03/2015 Colon Cancer Screening-CT Colonography Discontinued 12/03/2015, 12/03/2015 Colon Cancer Screening-DNA Stool Discontinued 12/03/19 16, 12/03/2015 Colon Cancer Screening-FIT Discontinued 12/03/2015, Colon Cancer Screening-Sigmoidoscopy Discontinued 12/03/2015, 12/03/2015 Pneumococcal vaccine 65+ Discontinued 01/21/2018, 01/03 Influenza Vaccine Discontinued Procedures Procedure Name Priority Date/Time Associated Diagnosis [...] old F with given history of screening. 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 TB: TB Report ID: [id number] Reading Location: [facility] [place] Procedure Note Radha Tim MD - 12/06/2020 EXAM DESCRIPTION: DEXA AXIAL SKELETON BONE DENSITY 1 OR MORE SITES REASON FOR STUDY: 70 y/o year old F with given history ofscreening. Assistant Technician/Model: [employer] SL (S/N [id number]) CLINICAL INFORMATION: Current height: 60 inches Maximum [...] Radha Tim M.D. TB: TB Report ID: [id number] Reading Location: [facility] [place] Samuel Mccarty MD IMG DXA PROCEDURES Final Result * COLONOSCOPY IMAGES (12/03/2015) Anatomical Region Laterality Modality Other Narrative 12/03/2015 Ordered by an unspecified provider. Historical Provider GI PROCEDURE ORDERABLES F inal Result * MAMMOGRAPHY (10/23/2011) Mammogram Normal SCRIBED BI-RADS 2 Historical Provider HEALTH MAINTENANCE Final Result from Last 3 Months or Most Recently Relevant to Health Maintenance Insurance [facility] MEDICARE HMO [employer] MEDICARE HMO Care Teams Lock Assembler Relationship Specialty Start Date End Date Samuel Mccarty MD [address] [place] [address] PCP - General 08/01/16
[2024-11-16 17:44] VITALS: BP 165/70; PULSE 103; RESP 18; TEMP 36.8; O2SAT 94
--- NOTE | 2024-11-16 17:54 | ED.URI ---
HPI - URI/Sore Throat General Chief Complaint: Upper Respiratory Infection Stated Complaint: Sore Throat Time Seen by Provider: 11/16/24 17:54 Source: patient Mode of arrival: ambulatory Limitations: no limitations History of Present Illness HPI Narrative: 74-year-old female presents with complaint of right-sided sore throat for 2 days. Afebrile. No other symptoms. Patient states she needs penicillin. All systems reviewed and negative except as noted above. Related Data Home Medications ?Medication ?Instructions ?Recorded ?Confirmed ?Last Taken ?Type alprazolam 0.5 mg tablet 0.5 mg PO DAILY 07/24/22 10/18/23 Unknown History amlodipine 10 mg tablet 10 mg PO DAILY 07/24/22 10/18/23 Unknown History fluticasone furoate 200 See Rx Instructions .Route .COMPLEX 07/24/22 10/18/23 Unknown History mcg-vilanterol 25 mcg/dose inhalation powder (Breo Ellipta) naproxen 375 mg tablet 375 mg PO BID PRN Pain 07/24/22 10/18/23 Unknown History tizanidine 2 mg capsule 2 mg PO TID PRN pain 07/24/22 10/18/23 Unknown History albuterol sulfate 90 mcg/actuation inhalation 11/22/23 Unknown History aerosol inhaler Allergies Allergy/AdvReac Type Severity Reaction Status Date / Time Flu shot Allergy Rash Uncoded 11/22/23 11:03 pneumonia shot AdvReac Rash Uncoded 11/22/23 11:03 Review of Systems Review of Systems: CONSTITUTIONAL: Denies fever, chills, or sweats. EYES: Denies visual changes, redness, or discharge. ENT: Denies rhinorrhea, congestion Reports sore throat to right side. Denies otalgia. CARDIOVASCULAR: Denies chest pain, palpitations, or edema. RESPIRATORY: Denies cough or dyspnea. GASTROINTESTINAL: Denies abdominal pain, nausea, vomiting, or diarrhea. GENITOURINARY: Denies dysuria or hematuria. SKIN: Denies rash or itching. MUSCULOSKELETAL: Denies back pain, joint pain, or myalgia. NEUROLOGIC: Denies headache, numbness, or weakness. PSYCHIATRIC: Denies anxiety or depression. All other systems reviewed are negative, except as documented in HPI. [facility] Past Medical History Medical History Anxiety Arthritis COPD (chronic obstructive pulmonary disease) HTN (hypertension) Restless leg syndrome Sciatica Serum cholesterol elevated Surgical History Surgical History H/O section Family History Family History Other Hypertension Social History Social History Smoking packs per day: 0.4 Smoking cigarettes per day: 8.0 Smoking status: Former smoker Tobacco type: cigarettes Alcohol intake: current Substance use type: does not use Occupation/Education: retired Gender identity (if verbalized by the patient): Female Comments At time of signature, agree with nursing past medical, surgical, social and family history. There is no relevant family history pertinent to the presenting complaint. Exam Narrative: GENERAL: This is a well-nourished, well-developed patient, in no apparent distress. HEAD: normocephalic, atraumatic. EYES: PERRL. Sclera clear/white. Vision is grossly intact. EARS: External ears normal, auditory canals clear and without drainage, TMs normal without perforation. Hearing grossly intact. NOSE: External nose normal with no obvious nasal discharge, nares without redness, no rhinorrhea. THROAT: Mucous membranes moist, mild erythema to posterior pharynx without swelling or exudates. NECK: Neck supple, non-tender without lymphadenopathy, masses or thyromegaly. CARDIOVASCULAR: Regular rate and rhythm without murmurs, gallops, or rubs. RESPIRATORY: Clear to auscultation. Breath sounds equal bilaterally. No wheezes, rales, or rhonchi. SKIN: warm, Dry, intact with no suspicious lesions or rash, good texture and turgor. NEURO: awake, alert, and oriented to person, place and time. There were no obvious focal neurologic abnormalities. EXTREMITIES: No joint tenderness, effusion, or edema noted. Course Course Level of Care: Express Care Visit Vital Signs Vital signs: Vital Signs Temperature 36.8 C 11/16/24 17:44 Pulse Rate 103 H 11/16/24 17:44 Respiratory Rate 18 11/16/24 17:44 Blood Pressure 165/70 H 11/16/24 17:44 Pulse Oximetry 94 11/16/24 17:44 Oxygen Delivery Room Air 11/16/24 17:44 Temperature 36.8 C 11/16/24 17:44 Pulse Rate 103 H 11/16/24 17:44 Respiratory Rate 18 11/16/24 17:44 Blood Pressure 165/70 H 11/16/24 17:44 Pulse Oximetry 94 11/16/24 17:44 Oxygen Delivery Room Air 11/16/24 17:44 Reviewed, oxygen saturation 94 history of COPD MDM - URI/Sore Throat MDM Narrative Medical decision making narrative: strep test negative. Strep culture ordered. Patient is well-appearing, nontoxic. Recommend [id number] medications to treat viral symptoms. Differential Diagnosis Differential diagnosis: Likely upper respiratory infection, viral infection and pharyngitis Discharge Plan Discharge Clinical Impression: Acute viral pharyngitis Patient Disposition: Home Condition: Stable Instructions: Pharyngitis (ED) Additional Instructions: your strep test was negative today. A strep culture was ordered and results will take 24-48 hours. If your strep culture is positive we will call you at that time and prescribed an antibiotic. Your symptoms are viral and may last 7-10 days. Take Tylenol or ibuprofen every 6-8 hours as needed for pain. See your doctor if symptoms are not improving. Patient Language: Nicaraguan Prescriptions: No Action naproxen 375 mg tablet 375 mg PO BID PRN (Reason: Pain) alprazolam 0.5 mg tablet 0.5 mg PO DAILY amlodipine 10 mg tablet 10 mg PO DAILY tizanidine 2 mg Capsule 2 mg PO TID PRN (Reason: pain) fluticasone furoate-vilanterol [Breo Ellipta] 200-25 mcg/dose blister with device See Rx Instructions .ROUTE .COMPLEX Rx Instructions: as prescribed diclofenac sodium [Voltaren Arthritis Pain] 1 % gel 2 g topical QID Qty: 100 0RF Rx Instructions: apply to left knee as prescribed albuterol sulfate 90 mcg/actuation HFA aerosol inhaler INHALATION fluticasone propionate [Flonase Allergy Relief] 50 mcg/actuation spray,suspension 1 spray intranasal BID Qty: 16 0RF Rx Instructions: administer into each nostril benzonatate 100 mg capsule 100 mg PO TID PRN (Reason: cough) Qty: 15 0RF Follow-up/Referrals: Harms,Samuel Polanco M.D. [Primary Care Provider] - Time of Disposition: 18:01
[2024-11-16 18:00] LABS: EDSTREPNEGPOS1 Negative (Negative)
== END 2024-11-16 18:07 | disposition home or self-care (01) ==
PROVIDERS: Emergency Provider Nurse Practitioner Family; PCP Family Medicine
DX: J02.8 Acute pharyngitis due to other specified organisms (principal); I10 Essential (primary) hypertension; J44.9 Chronic obstructive pulmonary disease, unspecified; M19.90 Unspecified osteoarthritis, unspecified site; G25.81 Restless legs syndrome; F41.9 Anxiety disorder, unspecified; Z87.891 Personal history of nicotine dependence
CPT/HCPCS: 87081; 87880; 99213; G0463